=== PATIENT | female | born 1995 | race Two or more races ===

== ENCOUNTER 2018-08-12 12:20 | Observation (INO) | payer MEDICAID, OTHER ==
[~2018-08-12] VITALS: Ht 152.4 cm; Wt 52.2 kg
[2018-08-12] MEDS ORDERED: TERBUTALINE SULFATE 1 MG/ML 1ML VIAL SC ONE ×2 (13:23→13:30)
[2018-08-12] MEDS ORDERED: PREN-145 OR (14:22)
== END 2018-08-12 14:30 | disposition home or self-care (01) | DRG 566 ==
LOC: LDRP 12:20
PROVIDERS: ADMIT Obstetrics & Gynecology; ATTEND Obstetrics & Gynecology
DX: O26.893 Other specified pregnancy related conditions, third trimester (principal); M54.9 Dorsalgia, unspecified; R10.9 Unspecified abdominal pain; O99.89 Other specified diseases and conditions complicating pregnancy, childbirth and the puerperium; Z3A.35 35 weeks gestation of pregnancy
CPT/HCPCS: 59025; 81002; 82962; G0378

== ENCOUNTER 2018-08-13 09:05 | Observation (INO) | payer MEDICAID, OTHER ==
[~2018-08-13 09:05] MED LIST: PREN-145 OR
== END 2018-08-13 11:25 | disposition home or self-care (01) | DRG 566 ==
LOC: LDRP 09:05
PROVIDERS: ADMIT Specialist; ATTEND Specialist
DX: O42.913 Preterm premature rupture of membranes, unspecified as to length of time between rupture and onset of labor, third trimester (principal); Z3A.35 35 weeks gestation of pregnancy
CPT/HCPCS: 59025; 76815; 81002; G0378

== ENCOUNTER 2018-08-15 09:18 | Observation (INO) | payer MEDICAID ==
[~2018-08-15] VITALS: Ht 152.4 cm; Wt 56.7 kg
[2018-08-15] MEDS ORDERED: LACTATED RINGER'S 1,000 ML IV ONE (10:30)
[2018-08-15] MEDS ORDERED: NIFEdipine 10 MG CAP PO ONE (11:45)
[2018-08-15] MEDS ORDERED: TERBUTALINE SULFATE 1 MG/ML 1ML VIAL SC SCH (11:45)
== END 2018-08-15 12:30 | disposition home or self-care (01) | DRG 566 ==
LOC: LDRP 09:18
PROVIDERS: ADMIT Specialist; ATTEND Specialist
DX: O46.93 Antepartum hemorrhage, unspecified, third trimester (principal); F17.210 Nicotine dependence, cigarettes, uncomplicated; O62.9 Abnormality of forces of labor, unspecified; O99.333 Smoking (tobacco) complicating pregnancy, third trimester; Z3A.36 36 weeks gestation of pregnancy
CPT/HCPCS: 59025; 76818; 81002; G0378

== ENCOUNTER → 2019-12-22 | Emergency (ER) | payer MEDICAID ==
[~2019-12-22] VITALS: Ht 152.4 cm; Wt 57.6 kg
[~2019-12-22] MED LIST changes: +ONDANSETRON ODT 4 MG TAB PO ONE
[2019-12-22 21:12] LABS: Urine Amorphous Crystal FEW /hpf (None Seen); Urine Bacteria NONE SEEN /hpf (None Seen); Urine Blood Negative /uL (Negative); Urine Specific Gravity 1.023 (1.001-1.035); Urine WBC 25 /hpf (0 - 5)
[2019-12-22 21:37] VITALS: BP 130/74
== END | disposition home or self-care (01) ==
LOC: ER 16:53
DX: O21.8 Other vomiting complicating pregnancy (principal); O23.41 Unspecified infection of urinary tract in pregnancy, first trimester; Z3A.08 8 weeks gestation of pregnancy
CPT/HCPCS: 81001; 99283; Q0162

== ENCOUNTER 2020-04-18 19:05 | Observation (INO) | payer MEDICAID ==
[~2020-04-18 19:05] MED LIST changes: -ONDANSETRON ODT 4 MG TAB PO ONE
[2020-04-18 21:24] LABS: Urine Bacteria NONE SEEN /hpf (None Seen); Urine Blood Negative /uL (Negative); Urine Specific Gravity 1.002 (1.001-1.035); Urine WBC 1 /hpf (0 - 5)
== END 2020-04-18 21:46 | disposition home or self-care (01) ==
LOC: LDRP 19:05
PROVIDERS: ADMIT Obstetrics & Gynecology; ATTEND Obstetrics & Gynecology
DX: O30.002 Twin pregnancy, unspecified number of placenta and unspecified number of amniotic sacs, second trimester (principal); O62.9 Abnormality of forces of labor, unspecified; Z87.891 Personal history of nicotine dependence; Z79.899 Other long term (current) drug therapy; Z3A.25 25 weeks gestation of pregnancy
CPT/HCPCS: 59025; 76815; 81001; 81002; 87086; 96360; 96361; G0378

== ENCOUNTER 2020-05-14 11:08 | Observation (INO) | payer MEDICAID | END 2020-05-14 13:23 | disposition home or self-care (01) | LOC: LDRP 11:08 | PROVIDERS: ADMIT Obstetrics & Gynecology; ATTEND Obstetrics & Gynecology | DX: O30.003 Twin pregnancy, unspecified number of placenta and unspecified number of amniotic sacs, third trimester (principal); Z3A.28 28 weeks gestation of pregnancy | CPT/HCPCS: 59025; 76818; 81002; G0378 ==

== ENCOUNTER 2020-05-19 11:05 | Observation (INO) | payer MEDICAID ==
[~2020-05-19] VITALS: Ht 152.4 cm; Wt 61.7 kg
[2020-05-19] MEDS ORDERED: NIF10C GT (11:50)
[2020-05-19] MEDS ORDERED: TERBUTALINE SULFATE 1 MG/ML 1ML VIAL SC ONE ×2 (12:45→12:50)
[2020-05-19] MEDS ORDERED: LACTATED RINGER'S 1,000 ML IV ONE (12:45)
== END 2020-05-19 16:14 | disposition home or self-care (01) ==
LOC: LDRP 11:05
PROVIDERS: ADMIT Specialist; ATTEND Specialist
DX: O30.003 Twin pregnancy, unspecified number of placenta and unspecified number of amniotic sacs, third trimester (principal); O62.9 Abnormality of forces of labor, unspecified; O21.2 Late vomiting of pregnancy; Z3A.29 29 weeks gestation of pregnancy
CPT/HCPCS: 59025; 76818; 81002; 96372; G0378; J3105

== ENCOUNTER 2020-05-23 11:10 | Observation (INO) | payer MEDICAID ==
[~2020-05-23] VITALS: Ht 30.5 cm; Wt 0.5 kg
[~2020-05-23 11:10] MED LIST changes: +NIF10C PO
[2020-05-23] MEDS ORDERED: LACTATED RINGER'S 1,000 ML IV ONE (13:00)
[2020-05-23] MEDS ORDERED: BETAMETHASONE ACET (6MG/ML) 5ML VIAL IM SCH (15:15)
== END 2020-05-23 16:13 | disposition home or self-care (01) ==
LOC: LDRP 11:10
PROVIDERS: ADMIT Specialist; ATTEND Specialist
DX: O26.93 Pregnancy related conditions, unspecified, third trimester (principal); R42 Dizziness and giddiness; Z3A.30 30 weeks gestation of pregnancy
CPT/HCPCS: 59025; 76818; 81002; 94760; 96360; 96361; 96372; G0378; J0702

== ENCOUNTER 2020-05-24 15:38 | Observation (INO) | payer MEDICAID ==
[~2020-05-24] VITALS: Ht 152.4 cm; Wt 60.3 kg
[2020-05-24] MEDS ORDERED: BETAMETHASONE ACET (6MG/ML) 5ML VIAL IM ONE ×2 (16:15→16:30)
[2020-05-24] MEDS ORDERED: TERBUTALINE SULFATE 1 MG/ML 1ML VIAL SC ONE (16:26)
[2020-05-24] MEDS: TERBUTALINE SULFATE 1 MG/ML 1ML VIAL SC PRN ×2 (16:42→17:36)
[2020-05-24] MEDS ORDERED: ceFAZolin 1GM/50ML 50 ML IV ONE (18:00)
[2020-05-24] MEDS ORDERED: LACTATED RINGER'S 1,000 ML IV PRN (18:00)
[2020-05-24 18:36] LABS: Urine Bacteria NONE SEEN /hpf (None Seen); Urine Blood Negative /uL (Negative); Urine Specific Gravity 1.005 (1.001-1.035); Urine WBC 2 /hpf (0 - 5)
== END 2020-05-24 20:14 | disposition home or self-care (01) ==
LOC: LDRP 15:38
PROVIDERS: ADMIT Obstetrics & Gynecology; ATTEND Obstetrics & Gynecology
DX: O30.003 Twin pregnancy, unspecified number of placenta and unspecified number of amniotic sacs, third trimester (principal); O21.2 Late vomiting of pregnancy; O26.833 Pregnancy related renal disease, third trimester; O26.873 Cervical shortening, third trimester; R35.0 Frequency of micturition; Z3A.30 30 weeks gestation of pregnancy
CPT/HCPCS: 59025; 81001; 81002; 82948; 82962; 96361; 96365; 96372; G0378; J0690; J3105; 96360

== ENCOUNTER 2020-05-28 13:57 | Observation (INO) | payer MEDICAID | END 2020-05-28 19:06 | disposition home or self-care (01) | LOC: LDRP 13:57 | PROVIDERS: ADMIT Specialist; ATTEND Specialist | DX: O30.003 Twin pregnancy, unspecified number of placenta and unspecified number of amniotic sacs, third trimester (principal); O60.03 Preterm labor without delivery, third trimester; Z3A.30 30 weeks gestation of pregnancy; Z87.891 Personal history of nicotine dependence | CPT/HCPCS: 59025; 81002; G0378; 76818 ==

== ENCOUNTER 2020-05-29 20:24 | Observation (INO) | payer MEDICAID ==
[2020-05-29] MEDS ORDERED: LACTATED RINGER'S 1,000 ML IV ONE (23:15)
[2020-05-29] MEDS ORDERED: ONDANSETRON ODT 4 MG TAB PO ONE (23:15)
[2020-05-29] MEDS ORDERED: ONDANSETRON HCL 4 MG/2 ML VIAL IV PRN (23:30)
[2020-05-29] MEDS ORDERED: CALCIUM CARB 500 MG CHEW TAB PO ONE (23:30)
[2020-05-29] MEDS ORDERED: ALUM & MAG HYDROX-SIMETH LIQ(MAALOX) 30 ML PO ONE (23:30)
[2020-05-29] MEDS ORDERED: ONDANSETRON HCL 4 MG/2 ML VIAL ONE (23:35)
[2020-05-30] MEDS ORDERED: TERBUTALINE SULFATE 1 MG/ML 1ML VIAL SC SCH
[2020-05-30] MEDS ORDERED: TERBUTALINE SULFATE 1 MG/ML 1ML VIAL SC ONE (00:01)
== END 2020-05-30 01:50 | disposition home or self-care (01) ==
LOC: LDRP 20:24 → UNDOADMOB 20:24 → LDRP 20:25 → UNDODISOB 05-30 01:50
PROVIDERS: ADMIT Obstetrics & Gynecology; ATTEND Obstetrics & Gynecology
DX: U07.1 COVID-19 (principal); O30.003 Twin pregnancy, unspecified number of placenta and unspecified number of amniotic sacs, third trimester; O21.2 Late vomiting of pregnancy; Z3A.31 31 weeks gestation of pregnancy; Z87.891 Personal history of nicotine dependence
CPT/HCPCS: 36415; 59025; 81002; 87426; 94760; 96360; 96361; 96372; G0378; J2405; J3105; U0003; 96366; 96374

== ENCOUNTER 2020-05-31 09:25 | Observation (INO) | payer MEDICAID ==
[2020-05-31] MEDS ORDERED: NIFEdipine 10 MG CAP PO ONE (10:15)
== END 2020-05-31 12:32 | disposition home or self-care (01) ==
LOC: LDRP 09:25
PROVIDERS: ADMIT Obstetrics & Gynecology; ATTEND Obstetrics & Gynecology
DX: O60.03 Preterm labor without delivery, third trimester (principal); O30.003 Twin pregnancy, unspecified number of placenta and unspecified number of amniotic sacs, third trimester; Z3A.31 31 weeks gestation of pregnancy; Z87.891 Personal history of nicotine dependence
CPT/HCPCS: 59025; 76818; 81002; 94760; G0378

== ENCOUNTER 2020-06-05 14:48 | Observation (INO) | payer MEDICAID ==
[2020-06-05] MEDS ORDERED: TERBUTALINE SULFATE 1 MG/ML 1ML VIAL SC ONE ×2 (15:15→15:31)
== END 2020-06-05 16:10 | disposition home or self-care (01) ==
LOC: LDRP 14:48
PROVIDERS: ADMIT Obstetrics & Gynecology; ATTEND Obstetrics & Gynecology
DX: O60.03 Preterm labor without delivery, third trimester (principal); O62.9 Abnormality of forces of labor, unspecified; Z3A.32 32 weeks gestation of pregnancy
CPT/HCPCS: 59025; 81002; 96372; G0378; J3105

== ENCOUNTER 2020-06-09 11:21 | Observation (INO) | payer MEDICAID | END 2020-06-09 13:30 | disposition home or self-care (01) | LOC: UNDOADMOB 11:21 → LDRP 11:21 → UNDODISOB 13:30 | PROVIDERS: ADMIT Specialist; ATTEND Specialist | DX: O30.003 Twin pregnancy, unspecified number of placenta and unspecified number of amniotic sacs, third trimester (principal); O62.9 Abnormality of forces of labor, unspecified; Z3A.32 32 weeks gestation of pregnancy | CPT/HCPCS: 59025; 81002; G0378 ==

== ENCOUNTER 2020-06-11 16:30 | Observation (INO) | payer MEDICAID ==
[2020-06-11] MEDS ORDERED: FERR-7 PO ×2 (17:02)
[2020-06-11] MEDS ORDERED: FOLI1TAB6 PO ×2 (17:02)
== END 2020-06-11 17:54 | disposition home or self-care (01) ==
LOC: LDRP 16:30
PROVIDERS: ADMIT Obstetrics & Gynecology; ATTEND Obstetrics & Gynecology
DX: O30.003 Twin pregnancy, unspecified number of placenta and unspecified number of amniotic sacs, third trimester (principal); Z3A.32 32 weeks gestation of pregnancy
CPT/HCPCS: 59025; 76818; 81002; G0378

== ENCOUNTER 2020-06-14 12:41 | Observation (INO) | payer MEDICAID ==
[~2020-06-14 12:41] MED LIST changes: +FERR-7 PO; +FOLI1TAB6 PO
== END 2020-06-14 15:25 | disposition home or self-care (01) ==
LOC: LDRP 12:41
PROVIDERS: ADMIT Obstetrics & Gynecology; ATTEND Obstetrics & Gynecology
DX: O98.513 Other viral diseases complicating pregnancy, third trimester (principal); U07.1 COVID-19; O60.03 Preterm labor without delivery, third trimester; Z3A.33 33 weeks gestation of pregnancy
CPT/HCPCS: 59025; 76818; 81002; G0378; U0003